=== PATIENT | female | born 1985 | race Two or more races ===

== ENCOUNTER 2018-12-22 16:59 | Emergency (ER) | payer MEDICAID ==
[~2018-12-22] VITALS: Ht 162.6 cm; Wt 77.1 kg
[~2018-12-22 16:59] MED LIST: NITR100C44 PO; NOR10T PO; SULF500T8 PO
[2018-12-22 18:56] VITALS: BP 110/68
[2018-12-22] MEDS ORDERED: KETOROLAC TROMETH 60MG/2ML VIAL IM ONE (20:00)
[2018-12-22] MEDS ORDERED: methylPREDNISolone SOD SUCC 125 MG/2 ML VL IM ONE (20:00)
== END 2018-12-22 20:18 | disposition home or self-care (01) ==
LOC: ER 17:07
DX: S62.665A Nondisplaced fracture of distal phalanx of left ring finger, initial encounter for closed fracture (principal); F12.10 Cannabis abuse, uncomplicated; Z88.1 Allergy status to other antibiotic agents; W22.8XXA Striking against or struck by other objects, initial encounter; Y93.89 Activity, other specified; Y99.8 Other external cause status; Y92.89 Other specified places as the place of occurrence of the external cause
CPT/HCPCS: 29130; 73130; 96372; 99283; J1885; J2930